=== PATIENT | female | born 1945 | race Asian ===

== ENCOUNTER → 2016-09-08 | Outpatient (CLI) | payer OTHER | LOC: FIMAGING 08:22 | PROVIDERS: ATTEND Internal Medicine | DX: Z12.31 Encounter for screening mammogram for malignant neoplasm of breast (principal); Z80.3 Family history of malignant neoplasm of breast | CPT/HCPCS: G0202 ==

== ENCOUNTER 2016-09-15 11:14 | Day surgery (SDC) | payer OTHER ==
[2016-09-15] MEDS ORDERED: LR 1,000 ML IV ONE (12:13)
--- NOTE | 2016-09-15 13:38 | PDGENHP ---
History & Physical Chief Complaint: screening History of Present Illness: 70 year old female presents for screening colonoscopy. Grandparent with CRC Pertinent Past, Social, Family History: PMHx: HTN, DM, hypothyroid. FaMHx: 2nd degree relative with polyps Relevant Physical Exam: HEENT: anicteric. CV: RRR +s1s2. No m/r/g. Lungs: CTAB No w/r/r. Abd: soft, nt, + bs. No g/r Cardiorespiratory Assessment: ASA 2
--- NOTE | 2016-09-15 13:47 | PDANEPAE ---
ANE Past Medical History - Cardiovascular History Hx Hypertension: No Hx Arrhythmias: No Hx Chest Pain: No Hx Coronary Artery / Peripheral Vascular Disease: No Hx CHF / Valvular Disease: No Hx Palpitations: No - Pulmonary History Hx COPD: No Hx Asthma/Reactive Airway Disease: No Hx Recent Upper Respiratory Infection: No Hx Oxygen in Use at Home: No Hx Sleep Apnea: No - Neurologic History Hx Cerebrovascular Accident: No Hx Seizures: No Hx Dementia: No - Endocrine History Hx Diabetes: No Endocrine History Comment: pre-diabetic - Renal History Hx Renal Disorders: No - Liver History Hx Hepatic Disorders: No - Neurological & Psychiatric Hx Hx Neurological and Psychiatric Disorders: No - Cancer History Hx Cancer: No - Congenital Disorder History Hx Congenital Disorders: No - GI History Hx Gastrointestinal Disorders: No - Surgical History Prior Surgeries: c-secion, carpal tunnel sx bilateral wrist, ANE Review of Systems - Exercise capacity METS (RN): 4 METS ANE Patient History - Allergies Allergies/Adverse Reactions: Sulfa (Sulfonamide Antibiotics) Allergy (Intermediate, Verified 09/15/16 12:22) Hives - Home Medications Home Medications: Acyclovir 09/15/16 [Last Taken 09/13/16 400 mg] Aspirin 81mg (*) 09/15/16 [Last Taken 09/13/16 81 mg] FLUoxetine 09/15/16 [Last Taken 09/13/16 20 mg] Fenofibrate 09/15/16 [Last Taken 09/13/16 145 mg] Levothyroxine 09/15/16 [Last Taken 09/14/16 03:00 75 mcg] Loratadine 09/15/16 [Last Taken 09/14/16 07:00 10 mg] Metformin HCl 09/15/16 [Last Taken 09/13/16 500 mg] Simvastatin 09/15/16 [Last Taken 09/13/16 10 mg] - NPO status NPO Since - Liquids (Date): 09/14/16 NPO Since - Liquids (Time): 11:59 NPO Since - Solids (Date): 09/14/16 NPO Since - Solids (Time): 21:30 - Smoking Hx Smoking Status: Former smoker - Family Anes Hx Family Hx Anesthesia Complications: no ANE Labs/Vital Signs - Vital Signs Blood Pressure: 118/75 Heart Rate: 66 Respiratory Rate: 16 O2 Sat (%): 95 ANE Physical Exam - Airway Neck exam: FROM Mallampati Score: Class 3 Mouth exam: normal dental/mouth exam - Pulmonary Pulmonary: no respiratory distress, no rales or rhonchi, clear to auscultation - Cardiovascular Cardiovascular: regular rate and rhythym, no murmur, rub, or gallop - ASA Status ASA Status: II ANE Anesthesia Plan Anesthesia Plan: MAC
[2016-09-15] MEDS ORDERED: PROPOFOL 200 MG/20 ML VIAL ONE (13:51)
[2016-09-15] MEDS ORDERED: ONDANSETRON 4 MG/2 ML VIAL IVP PRN (13:52)
[2016-09-15] MEDS ORDERED: fentaNYL 100 MCG/2 ML INJ IVP PRN (13:52)
[2016-09-15] MEDS ORDERED: NALOXONE HCL 0.4 MG/ML INJ IVP PRN (13:52)
--- NOTE | 2016-09-15 14:28 | POSTANESTH ---
Post Anesthetic Evaluation Cardiovascular Status: Normal, Stable, Similar to Pre-Op Cond Respiratory Status: Normal, Stable, Similar to Pre-op Cond. Level of Consciousness/Mental Status: Can Participate in Eval, Alert and Oriented Pain Control: Adequate, Prn Tx Ordered Nausea/Vomiting Control: Adequate, Prn Tx Ordered Complications Possibly Related to Anesthesia: None Noted
--- NOTE | 2016-09-15 14:34 | POSTOPPROG ---
Post Op Note Date of Operation: 09/15/16 Surgeon: Seven Daniels Anesthesia: IV Sedation Pre-op Diagnosis: screening Post-op Diagnosis: + polyps Indication: screening Procedure: Colonoscopy Findings: hepatic and ascending polyp Inf/Abcess present in the surg proc area at time of surgery?: No Specimen(s): hep and ascending polyp
--- NOTE | 2016-09-15 14:48 | GPN ---
[f rep st] PROCEDURE NOTE DATE OF PROCEDURE: 09/15/16 PROCEDURE: Colonoscopy with snare polypectomy. INDICATION: Trupti is a 70-year-old female, who presents for screening colonoscopy. CONSENT: Risks, benefits, and alternatives of the procedure were discussed in great detail with the patient. Risks of infection, bleeding, perforation, and sedation were discussed. All questions answered and informed consent was obtained. MEDICATIONS: Propofol. Please see Anesthesia record for details. ESTIMATED BLOOD LOSS: Insignificant. COLONOSCOPIC EVALUATION: A rectal exam was performed and palpable mass was appreciated. The Olympus colonoscope was introduced into the rectum and advanced to the cecum, where the ileocecal valve and appendiceal orifice were seen. In the transverse colon, a 4 mm sessile polyp was seen and removed with snare polypectomy. In the hepatic flexure, a 1 cm sessile polyp was seen. The polyp was removed with snare polypectomy. IMPRESSION: Colonic polyps x2. RECOMMENDATIONS: 1. Follow up on biopsy results. If adenomatous, repeat in 5 years. 2. Continue previous medications. 3. Regular diet. /[id number]/MODL MTDD
[2016-09-15 15:10] VITALS: TEMP 97.9
[2016-09-15 15:22] VITALS: BP 120/74; PULSE 63; RESP 13; O2SAT 97
== END 2016-09-15 15:33 | disposition home or self-care (01) ==
LOC: FSGY 11:14
PROVIDERS: ATTEND Internal Medicine Gastroenterology
PROC: 0DBE8ZX Excision of Large Intestine, Via Natural or Artificial Opening Endoscopic, Diagnostic (ICD-10-PCS; principal; 2016-09-15 12:15)
DX: K63.5 Polyp of colon (principal); I10 Essential (primary) hypertension; E11.9 Type 2 diabetes mellitus without complications; E03.9 Hypothyroidism, unspecified; Z83.71 Family history of colonic polyps
CPT/HCPCS: J2704

== ENCOUNTER 2017-06-25 21:22 | Emergency (ER) | payer OTHER ==
[2017-06-25] MEDS ORDERED: ONDANSETRON 4 MG/2 ML VIAL ONE (21:49)
[2017-06-25] MEDS ORDERED: NS 1,000 ML IV ONE (21:52)
[2017-06-25] MEDS ORDERED: ONDANSETRON 4 MG/2 ML VIAL IVP ONE (21:56)
[2017-06-25 21:58] LABS: PLATELET COUNT 217 10^3/uL (150-400)
--- NOTE | 2017-06-25 22:03 | EDPHY ---
H & P Stated Complaint: RAMOS, nausea ans disorientation earlier Time Seen by Provider: 06/25/17 21:58 HPI/ROS: HPI: This is a 71-year-old female who presents with Chief Complaint: Frontal headache, nausea, disorientation Location: Head Quality: Frontal headache, nausea, disorientation Duration: Approximately 1 hr prior to arrival Signs and Symptoms: no fever, + nausea, no vomiting, no photophobia, no noise sensitivity, no neck stiffness, no ear pain, no tinnitus, no nasal congestion, no sinus pressure, no weakness, no radiation, no aura Timing: Acute, rapidly improve Severity: Moderate Context: Patient reports that she has chronic cervical neck pain and right trapezius muscle strain for the last several weeks. She has been attending physical therapy. She reports that today she had dry needling. She ate dinner consisting of turkey sandwich. She then laid down to perform her physical therapy exercises. She reports that she started to feel lightheaded, disoriented and nauseous. She reports that when she does have physical therapy she does seem did feel lightheaded and nauseous when she is with the physical therapist. She denies any fever/abdominal pain/diarrhea. She called her son to tell him that she felt disoriented. Denies the room is spinning and lightheadedness. She also reports that she has seasonal allergies and feels sinus pressure and congestion in the frontal maxillary area. She has not taking any [id number] antihistamines. She reports that when she stands up suddenly she gets lightheaded but this is not new for her and this has happened for over 5-10 years. Son reports that when she was talking to him on the phone her speech was clear and appropriate. Denies any urinary symptoms. Takes baby aspirin daily, statin. Modifying Factors: None Comment: ROS: see HPI Constitutional: No fever, no chills, no weight loss Eyes: No blurred vision Respiratory: No shortness of breath, no cough Cardiovascular: No chest pain, no palpitations Gastrointestinal: No nausea, no vomiting, no diarrhea, no hematemesis, no blood in stool Genitourinary: No dysuria, no blood in urine Extremities: No myalgias, no edema Neurologic: No weakness, no numbness Skin: No rashes, no petechiae Hematologic: No bruising, no bleeding MEDICAL/SURGICAL/SOCIAL HISTORY: Medical history: Major depression, hyperlipidemia, hypothyroidism Surgical history: Denies Social history: Divorce. Son lives with her ex-. Family history noncontributory. CONSTITUTIONAL: awake and alert, no obvious distress HEENT: Atraumatic and normocephalic, PERRL, EOMI. Nares patent; no rhinorrhea; no nasal mucosal edema. Tympanic membranes clear. Oropharynx clear, no exudate and moist pink mucosa. Airway patent. No lymphadenopathy. No meningismus. Cardiovascular: Normal S1/S2, regular rate, regular rhythm, without murmur rub or gallop. PULMONARY/CHEST: Symmetrical and nontender. Clear to auscultation bilaterally. Good air movement. No accessory muscle usage. ABDOMEN: Soft, nondistended, nontender, no rebound, no guarding, no peritoneal signs, no masses or organomegaly. No CVAT. EXTREMITIES: 2/2 pulses, strength 5/5, no deformities, no clubbing, no cyanosis or edema. NEUROLOGICAL: no focal neuro deficits. GCS 15. NIH stroke scale=0 SKIN: Warm and dry, no erythema. no rash. Good capillary refill. Source: Patient, Family (Son) Exam Limitations: No limitations - Personal History Current Tetanus/Diphtheria Vaccine: Yes Current Tetanus Diphtheria and Acellular Pertussis (TDAP): Yes - Medical/Surgical History Hx Asthma: No Hx Chronic Respiratory Disease: No Hx Diabetes: No Hx Cardiac Disease: No Hx Renal Disease: No Hx Cirrhosis: No Hx Alcoholism: No Hx HIV/AIDS: No Hx Splenectomy or Spleen Trauma: No Other PMH: high cholesterol - Social History Smoking Status: Never smoked Constitutional: Initial Vital Signs Temperature (C) 36.6 C 06/25/17 21:29 Heart Rate 79 06/25/17 21:29 Respiratory Rate 16 06/25/17 21:29 Blood Pressure 141/98 H 06/25/17 21:29 O2 Sat (%) 96 06/25/17 21:29 O2 Delivery Mode Room Air Allergies/Adverse Reactions: Sulfa (Sulfonamide Antibiotics) Allergy (Intermediate, Verified 06/25/17 21:29) Hives Home Medications: Medication Instructions Recorded Acyclovir 09/15/16 Aspirin 81mg (*) 09/15/16 FLUoxetine 09/15/16 Fenofibrate 09/15/16 Levothyroxine 09/15/16 Loratadine 09/15/16 Metformin HCl 09/15/16 Simvastatin 09/15/16 Levocetirizine Dihydrochloride 5 mg PO DAILY #30 tablet 06/25/17 [Xyzal] Ondansetron Odt [Zofran Odt 4 mg 4 mg PO Q4 PRN #12 tab 06/25/17 (*)] Medical Decision Making - Diagnostics Imaging Results: Imaging Impressions Head CT 06/25/17 21:52 Impression: 1. No acute intracranial findings. If symptoms persist and clinical suspicion warrants, consider MRI. 2. Diffuse cerebral atrophy, with periventricular and subcortical low- attenuation consistent with chronic microvascular ischemic gliosis. 3. Additional findings, as above. Findings discussed with Ángela Jackson PA-C, on June 25, 2017 at 2218. ED Course/Re-evaluation: Patient had no LOC or neurological symptoms. NIH stroke scale=0. Highly doubt TIA versus CVA. ABCD2 Score-3; low risk of stroke Patient most likely is mildly dehydrated with orthostasis secondary to dry needling in physical therapy exercises. Given 1 L normal saline and IV Zofran. Labs, urinalysis and head CT scan ordered. 2220: Called by radiologist who advised that head CT scan shows mild atrophy but no acute signs of infarct, hemorrhage, fracture. Labs reviewed. No signs of leukocytosis/anemia/JUAN/elevated LFTs/electrolyte imbalance/coagulopathy. TSH is acceptable range. Urinalysis is unremarkable except a pH of 8. Reassessed patient who reports complete resolution of symptoms. Suspect dehydration coupled with paranasal sinus disease. Advises that she takes Flonase no [id number] antihistamines. Prescription for Xyzal ordered. No signs of syncope. Offered patient MRI of the brain and she politely declined. Advised to follow up with primary care provider early next week. This patient was seen under the supervision of my secondary supervising physician. I evaluated care for this patient independently. Differential Diagnosis: Dizziness including but not limited to peripheral and central causes of vertigo , orthostatic causes including dehydration, and blood loss. - Data Points Laboratory Results: Laboratory Results 06/25/17 21:50 06/25/17 21:50 06/25/17 06/25/17 06/25/17 22:07 21:50 21:50 WBC RBC Hgb Hct MCV MCH MCHC RDW Plt Count MPV Neut % (Auto) Lymph % (Auto) [place] % (Auto) Eos % (Auto) Baso % (Auto) Nucleat RBC Rel Count Absolute Neuts (auto) Absolute Lymphs (auto) Absolute Monos (auto) Absolute Eos (auto) Absolute Basos (auto) Absolute Nucleated RBC Immature Gran % Immature Gran # PT 12.9 SEC SEC (12.0-15.0) INR 0.95 (0.83-1.16) Sodium 139 mEq/L mEq/L (135-145) Potassium 3.8 mEq/L mEq/L (3.5-5.2) Chloride 104 mEq/L mEq/L (97-110) Carbon Dioxide 23 mEq/l mEq/l (22-31) Anion Gap 12 mEq/L mEq/L (8-16) BUN 20 mg/dL mg/dL (7-23) Creatinine 0.8 mg/dL mg/dL (0.6-1.0) Estimated GFR > 60 Glucose 111 mg/dL H mg/dL (70-100) Calcium 9.0 mg/dL mg/dL (8.5-10.4) Troponin I < 0.012 ng/mL ng/mL (0.000-0.034) TSH 1.490 uIU/mL uIU/mL (0.465-4.680) Urine Color Urine Appearance Urine pH Ur Specific [place] Urine Protein Urine Ketones Urine Blood Urine Nitrate Urine Bilirubin Urine Urobilinogen Ur Leukocyte Esterase Urine Glucose 06/25/17 06/25/17 21:50 20:25 WBC 7.88 10^3/uL 10^3/uL (3.80-9.50) RBC 4.41 10^6/uL 10^6/uL (4.18-5.33) Hgb 14.4 g/dL g/dL (12.6-16.3) Hct 41.3 % % (38.0-47.0) MCV 93.7 fL fL (81.5-99.8) MCH 32.7 pg pg (27.9-34.1) MCHC 34.9 g/dL g/dL (32.4-36.7) RDW 12.6 % % (11.5-15.2) Plt Count 217 10^3/uL 10^3/uL (150-400) MPV 9.8 fL fL (8.7-11.7) Neut % (Auto) 72.0 % % (39.3-74.2) Lymph % (Auto) 19.3 % % (15.0-45.0) [place] % (Auto) 6.6 % % (4.5-13.0) Eos % (Auto) 1.3 % % (0.6-7.6) Baso % (Auto) 0.4 % % (0.3-1.7) Nucleat RBC Rel Count 0.0 % % (0.0-0.2) Absolute Neuts (auto) 5.68 10^3/uL 10^3/uL (1.70-6.50) Absolute Lymphs (auto) 1.52 10^3/uL 10^3/uL (1.00-3.00) Absolute Monos (auto) 0.52 10^3/uL 10^3/uL (0.30-0.80) Absolute Eos (auto) 0.10 10^3/uL 10^3/uL (0.03-0.40) Absolute Basos (auto) 0.03 10^3/uL 10^3/uL (0.02-0.10) Absolute Nucleated RBC 0.00 10^3/uL 10^3/uL (0-0.01) Immature Gran % 0.4 % % (0.0-1.1) Immature Gran # 0.03 10^3/uL 10^3/uL (0.00-0.10) PT INR Sodium Potassium Chloride Carbon Dioxide Anion Gap BUN Creatinine Estimated GFR Glucose Calcium Troponin I TSH Urine Color YELLOW Urine Appearance HAZY Urine pH 8.0 H (5.0-7.5) Ur Specific [place] 1.012 (1.002-1.030) Urine Protein NEGATIVE (NEGATIVE) Urine Ketones NEGATIVE (NEGATIVE) Urine Blood NEGATIVE (NEGATIVE) Urine Nitrate NEGATIVE (NEGATIVE) Urine Bilirubin NEGATIVE (NEGATIVE) Urine Urobilinogen NEGATIVE EU EU (0.2-1.0) Ur Leukocyte Esterase NEGATIVE (NEGATIVE) Urine Glucose NEGATIVE (NEGATIVE) Medications Given: Discontinued Medications Sodium Chloride (Ns) 1,000 mls @ 0 mls/hr IV ONCE ONE; Wide Open PRN Reason: Protocol Stop: 06/25/17 21:53 Last Admin: 06/25/17 21:57 Dose: 1,000 mls Ondansetron HCl (Zofran) 4 mg IVP EDNOW ONE Stop: 06/25/17 21:57 Last Admin: 06/25/17 21:57 Dose: 4 mg Departure - Departure Disposition: Home, Routine, Self-Care Clinical Impression: Dehydration after exertion Allergic rhinosinusitis Qualifiers: Allergic rhinitis trigger: other Allergic rhinitis seasonality: seasonal Qualified Code(s): J30.89 - Other allergic rhinitis Condition: Good Instructions: Dehydration (ED), Allergies (ED) Additional Instructions: Consume a minimum of 8-10 glasses of water or electrolyte fluid replacement drinks that include Gatorade, Powerade, Pedialyte. Eat a bland diet for the next 48 hours and then slowly advance as tolerated. Take Zofran 1 tab every 4 hours as needed for nausea, vomiting. Take Xyzal in the evening for seasonal allergies. Continue to use Flonase nasal spray. Change positions slowly from lying to sitting to standing. Follow-up with your primary care provider next week. Referrals: Kamla Nesbitt MD [Primary Care Provider] - 2-3 days, call for appt. Prescriptions: Levocetirizine Dihydrochloride [Xyzal] 5 mg PO DAILY #30 tablet Ondansetron Odt [Zofran Odt 4 mg (*)] 4 mg PO Q4 PRN #12 tab PRN Reason: Nausea/Vomiting, Use 1st
[2017-06-25 22:06] LABS: INR 0.95 (0.83-1.16); PROTIME(PATIENT) 12.9 SEC (12.0-15.0)
[2017-06-25 23:04] VITALS: BP 106/69
== END 2017-06-25 23:04 | disposition home or self-care (01) ==
DX: J30.89 Other allergic rhinitis (principal); E86.0 Dehydration; E86.9 Volume depletion, unspecified; Z79.82 Long term (current) use of aspirin
CPT/HCPCS: 96374; J2405

== ENCOUNTER → 2017-09-09 | Outpatient (CLI) | payer OTHER | LOC: FIMAGING 09:25 | PROVIDERS: ATTEND Internal Medicine | DX: Z12.31 Encounter for screening mammogram for malignant neoplasm of breast (principal) ==